=== PATIENT | female | born 1970 | race Caucasian/White ===

== ENCOUNTER 2016-12-31 19:28 | Emergency (ER) | payer OTHER ==
--- NOTE | 2016-12-31 20:48 | DIAGNOSTIC IMAGING REPORT ---
PROCEDURE: XR WRIST MIN 3 VIEWS - LEFT INDICATION: TRAUMA/INJURY TECHNIQUE: Four views. COMPARISON: None. FINDINGS: Bones, joint spaces and soft tissues are normal. IMPRESSION: 1. Negative left wrist.
--- NOTE | 2016-12-31 20:53 | ED CLINICAL REPORT ---
Clinical Report - Physicians/Mid Levels [facility] [address] [place] [address] 12/31/2016 19:32 Patient: BRADLEY RICKS Time Seen: 19:57; initial patient contact. Arrived- By private vehicle. Historian- patient. HISTORY OF PRESENT ILLNESS Chief Complaint: Injury to the left wrist. The injury happened just prior to arrival. Occurred at home. (Lifting heavy object). Patient is experiencing moderate pain. Patient denies injury to the head or neck. REVIEW OF SYSTEMS No swelling, tingling, numbness or weakness. All systems otherwise negative, except as recorded above. PAST HISTORY Vasovagal Syncope. Pneumonia. Dysmenorrhea. Dysfunctional Uterine Bleeding. Dizziness. Abscess. Anemia. Pharyngitis. Abdominal Pain. SURGERIES: . Dental Surgery. Tubal Ligation. SOCIAL HISTORY Current every day smoker. No alcohol use or drug use. ADDITIONAL NOTES The nursing notes have been reviewed with agreement regarding the chief complaint, PMH and patient medications and allergies. PHYSICAL EXAM Vital Signs: 12/31/2016 19:44 BP: 142/87. HR: 97. RR: 16. O2 saturation: 100%. Temp: 98.3 F. Denny-Carmona pain scale: 4/10. Have been reviewed. Hypertensive. Heart rate normal. Respiratory rate normal. Temperature normal. Oxygen saturation normal. Appearance: Alert. Oriented X3. No acute distress. Head: Head atraumatic. Skin: Skin warm and dry. Skin intact. Extremities: Left wrist: moderate tenderness. Neurovascular intact distally. No erythema, swelling, ecchymosis or deformity. No limitation in ROM. Soft tissue tenderness present. No bony tenderness. Extremities otherwise negative. Neuro, Vascular and Tendons: Vascular status intact. Sensation intact. Motor intact. Tendon function intact. Neuro: Oriented X 3. No motor deficit. No sensory deficit. LABS, X-RAYS, AND EKG Lt Wrist X-ray: No fracture. Normal alignment. No bony lesion. Soft tissues normal. Joint spaces normal. Views: AP, lateral and oblique. Technique: good. The X-rays were independently viewed by me and interpreted contemporaneously by me. Prior films were not available for comparison. Interpretation time: 20:53. PROGRESS AND PROCEDURES Disposition: Discharged home in good and improved condition. Condition: good. CLINICAL IMPRESSION Sprain of the left radiocarpal joint. INSTRUCTIONS Apply ice for 20 minutes four times a day. Don't apply ice directly to skin. Wear cock-up splint until released. Do not work with left hand until released. Do not work until released. Prescription Medications: Diclofenac 50 mg tablets: take 1 tablet orally every 8 hours as needed for pain or stiffness. Dispense thirty (30). No refill. Follow-up: Follow up with your doctor in about four days. Call for an appointment. Screening today revealed the patient's blood pressure to be in the hypertensive range. The patient should follow up with a primary care provider for blood pressure management. (Electronically signed by Curt Max Dr. 12/31/2016 21:01)
--- NOTE | 2016-12-31 20:53 | ED ORDER SUMMARY ---
..... Patient: BRADLEY RICKS OrderSheet [facility] VisitID: [id number] [address] [place] [address] 46y, F Registration Date/Time: 12/31/2016 ORDER SHEET Weight: 77.5 kg (stated) Allergies: Codeine, Sulfa Antibiotics GENERAL ORDERS: Wrist 3 or 4V Left Urgent (19:50 12/31/2016 Vadim R.NAbe per protocol) (Ack 19:53 Renetta ER Retail And Promotions Coordinator) ([facility] Splint (UE) (Left) (Cock-up) (20:38 12/31/2016 Jj Ivory) (21:05 Vadim R.N.) MEDICATION ORDERS: Toradol IM 60 mg (NOW) (20:01 12/31/2016 Jj Ivory) (Ack 20:09 Vadim R.N.) (20:17 Vadim R.N.) IV FLUIDS: ORDER SHEET NOTES: [Electronically signed by Curt Max Dr. (21:12/31/2016)] [Electronically signed by Yris Zelaya R.N. (21:12/31/2016)] [Electronically locked/signed by Yris Zelaya R.N. (21:12/31/2016)]
--- NOTE | 2016-12-31 20:53 | ED ORDER SUMMARY ---
..... Patient: BRADLEY RICKS OrderSheet [facility] VisitID: [id number] [address] [place] [address] 46y, F Registration Date/Time: 12/31/2016 ORDER SHEET Weight: 77.5 kg (stated) Allergies: Codeine, Sulfa Antibiotics GENERAL ORDERS: Wrist 3 or 4V Left Urgent (19:50 12/31/2016 Vadim R.NAbe per protocol) (Ack 19:53 Renetta ER Data Solutions Architect) (20:09 [facility] Splint (UE) (Left) (Cock-up) (20:38 12/31/2016 Jj Ivory) (21:05 Vadim R.N.) MEDICATION ORDERS: Toradol IM 60 mg (NOW) (20:01 12/31/2016 Jj Ivory) (Ack 20:09 Vadim R.N.) (20:17 Vadim R.N.) IV FLUIDS: ORDER SHEET NOTES: [Electronically signed by Curt Max Dr. (21:12/31/2016)] [Electronically signed by Yris Zelaya R.N. (21:12/31/2016)] [Electronically locked/signed by Yris Zelaya R.N. (21:12/31/2016)]
--- NOTE | 2016-12-31 20:53 | ED CLINICAL REPORT ---
Clinical Report - Physicians/Mid Levels [facility] [address] [place] [address] 12/31/2016 19:32 Patient: BRADLEY RICKS Time Seen: 19:57; initial patient contact. Arrived- By private vehicle. Historian- patient. HISTORY OF PRESENT ILLNESS Chief Complaint: Injury to the left wrist. The injury happened just prior to arrival. Occurred at home. (Lifting heavy object). Patient is experiencing moderate pain. Patient denies injury to the head or neck. REVIEW OF SYSTEMS No swelling, tingling, numbness or weakness. All systems otherwise negative, except as recorded above. PAST HISTORY Vasovagal Syncope. Pneumonia. Dysmenorrhea. Dysfunctional Uterine Bleeding. Dizziness. Abscess. Anemia. Pharyngitis. Abdominal Pain. SURGERIES: . Dental Surgery. Tubal Ligation. SOCIAL HISTORY Current every day smoker. No alcohol use or drug use. ADDITIONAL NOTES The nursing notes have been reviewed with agreement regarding the chief complaint, PMH and patient medications and allergies. PHYSICAL EXAM Vital Signs: 12/31/2016 19:44 BP: 142/87. HR: 97. RR: 16. O2 saturation: 100%. Temp: 98.3 F. Denny-Carmona pain scale: 4/10. Have been reviewed. Hypertensive. Heart rate normal. Respiratory rate normal. Temperature normal. Oxygen saturation normal. Appearance: Alert. Oriented X3. No acute distress. Head: Head atraumatic. Skin: Skin warm and dry. Skin intact. Extremities: Left wrist: moderate tenderness. Neurovascular intact distally. No erythema, swelling, ecchymosis or deformity. No limitation in ROM. Soft tissue tenderness present. No bony tenderness. Extremities otherwise negative. Neuro, Vascular and Tendons: Vascular status intact. Sensation intact. Motor intact. Tendon function intact. Neuro: Oriented X 3. No motor deficit. No sensory deficit. LABS, X-RAYS, AND EKG Lt Wrist X-ray: No fracture. Normal alignment. No bony lesion. Soft tissues normal. Joint spaces normal. Views: AP, lateral and oblique. Technique: good. The X-rays were independently viewed by me and interpreted contemporaneously by me. Prior films were not available for comparison. Interpretation time: 20:53. PROGRESS AND PROCEDURES Disposition: Discharged home in good and improved condition. Condition: good. CLINICAL IMPRESSION Sprain of the left radiocarpal joint. INSTRUCTIONS Apply ice for 20 minutes four times a day. Don't apply ice directly to skin. Wear cock-up splint until released. Do not work with left hand until released. Do not work until released. Prescription Medications: Diclofenac 50 mg tablets: take 1 tablet orally every 8 hours as needed for pain or stiffness. Dispense thirty (30). No refill. Follow-up: Follow up with your doctor in about four days. Call for an appointment. Screening today revealed the patient's blood pressure to be in the hypertensive range. The patient should follow up with a primary care provider for blood pressure management. (Electronically signed by Curt Max Dr. 12/31/2016 21:01)
--- NOTE | 2016-12-31 20:53 | ED NURSING NOTES ---
Clinical Report - Nurses [facility] [place] [address] [address] 12/31/2016 19:32 Patient: BRADLEY RICKS TRIAGE Triage time 19:44. Acuity: LEVEL 4. Chief Complaint: INJURY TO LEFT WRIST. --19:49 Yris Zelaya R.N. 19:44 12/31/16. BP: 142/87. HR: 97. RR: 16. O2 saturation: 100% on room air. Temp: 98.3 F (oral). Denny-Carmona pain scale: 4/10. --19:49 Yris Zelaya R.N. Weight: 77.5 kg stated. Height/Length: 64 inches Per Patient. BMI: 29.3. --19:47 Yris Zelaya R.N. Medications None. --19:47 Yris Zelaya R.N. Allergies Codeine.(Anaphylaxis) --19:47 Yris Zelaya R.N. Sulfa Antibiotics.(Anaphylaxis) --19:47 Yris Zelaya R.N. History Arrived by private vehicle. Historian: patient. Primary physician (Manjeet). This occurred today (about 10 minutes NIGHTMAN). Mechanism of injury: (pt was lifting aprox 30lb plastic tote and felt a pop with sudden pain). Treatment NIGHTMAN: Took Tylenol. (last dose 4hrs NIGHTMAN due to cold symptoms). PAST MEDICAL HX: Tetanus status: up-to-date. Immunizations: up-to-date. Last normal menstrual period now. SOCIAL HX: Heavy tobacco smoker (cigarette)- less than 1 pack per day. Occasional alcohol use. No drug use. NUTRITIONAL RISK ASSESSMENT: The nutritional risk assessment revealed no deficiencies. FUNCTIONAL ASSESSMENT: Functional assessment: no impairments noted. --19:49 Yris Zelaya R.N. PROBLEMS: Vasovagal Syncope. Pneumonia. Dysmenorrhea. Dysfunctional Uterine Bleeding. Dizziness. Abscess. Anemia. Pharyngitis. Abdominal Pain. LNMP - Last Normal Menstrual Period. --19:48 Yris Zelaya R.N. ADDITIONAL SURGERIES: . Dental Surgery. Tubal Ligation. --19:48 Yris Zelaya R.N. Interventions ID band on patient. To treatment room. --19:49 Yris Zelaya R.N. PHYSICAL ASSESSMENT Ambulatory to room. GENERAL / NEURO / PSYCH: Oriented X 4. Alert. Appears in no acute distress. EXTREMITIES: Capillary refill is less than 2 seconds in the extremities. Neuro-vascular status intact to the extremity. Left forearm: tenderness. Left wrist: tenderness. SKIN: Skin intact. Skin is warm and dry. --19:50 Yris Zelaya R.N. NURSING PROGRESS NOTES Two patient identifiers checked. Call light placed in reach. Side rails up x 1. Bed placed in lowest position. Brakes of bed on. --19:50 Yris Zelaya R.N. Patient ready for evaluation- chart flagged. --19:50 Yris Zelaya R.N. 20:15 12/31/2016 Toradol (Ketorolac Tromethamine) IM 60 mg given. Given in the right ventral gluteus. Allergies verified and confirmed 5 rights. --20:17 Yris Zelaya R.N. 20:56 12/31/16. Velcro upper extremity splint applied to left wrist. Distal pulses intact, sensation intact and motor within normal limits. --20:56 Harmony Carrillo. DISPOSITION / DISCHARGE Condition at departure: stable. No learning barriers present. Discharge instructions provided and reviewed with the patient. Reviewed medication(s) side effects, precautions, dosing and course information. Prescription(s) given to the patient (Diclofenac). The patient was discharged home and accompanied by family. She left the Emergency Department ambulatory and via private vehicle. Patient driving. --21:06 Yris Zelaya R.N. 21:05 12/31/16. BP: 124/77. HR: 93. RR: 15. O2 saturation: 99% on room air. Temp: deferred. Denny-Carmona pain scale: 4/10. --21:06 Yris Zelaya R.N. Locked/Released at 12/31/2016 21:06 by Yris Zelaya R.N.
--- NOTE | 2016-12-31 20:53 | ED NURSING NOTES ---
Clinical Report - Nurses [facility] [place] [address] [address] [place] [address] 12/31/2016 19:32 Patient: BRADLEY RICKS TRIAGE Triage time 19:44. Acuity: LEVEL 4. Chief Complaint: INJURY TO LEFT WRIST. --19:49 Yris Zelaya R.N. 19:44 12/31/16. BP: 142/87. HR: 97. RR: 16. O2 saturation: 100% on room air. Temp: 98.3 F (oral). Denny-Carmona pain scale: 4/10. --19:49 Yris Zelaya R.N. Weight: 77.5 kg stated. Height/Length: 64 inches Per Patient. BMI: 29.3. --19:47 Yris Zelaya R.N. Medications None. --19:47 Yris Zelaya R.N. Allergies Codeine.(Anaphylaxis) --19:47 Yris Zelaya R.N. Sulfa Antibiotics.(Anaphylaxis) --19:47 Yris Zelaya R.N. History Arrived by private vehicle. Historian: patient. Primary physician (Manjeet). 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 Mechanism of injury: (pt was lifting aprox 30lb plastic tote and felt a pop with sudden pain). Treatment SCIENTIFIC TECHNICAL WRITER: Took Tylenol. (last dose 4hrs SCIENTIFIC TECHNICAL WRITER due to cold symptoms). PAST MEDICAL HX: Tetanus status: up-to-date. Immunizations: up-to-date. Last normal menstrual period now. SOCIAL HX: Heavy tobacco smoker (cigarette)- less than 1 pack per day. Occasional alcohol use. No drug use. NUTRITIONAL RISK ASSESSMENT: The nutritional risk assessment revealed no deficiencies. FUNCTIONAL ASSESSMENT: Functional assessment: no impairments noted. --19:49 Yris Zelaya R.N. PROBLEMS: Vasovagal Syncope. Pneumonia. Dysmenorrhea. Dysfunctional Uterine Bleeding. Dizziness. Abscess. Anemia. Pharyngitis. Abdominal Pain. LNMP - Last Normal Menstrual Period. --19:48 Yris Zelaya R.N. ADDITIONAL SURGERIES: . Dental Surgery. Tubal Ligation. --19:48 Yris Zelaya R.N. Interventions ID band on patient. To treatment room. --19:49 Yris Zelaya R.N. PHYSICAL ASSESSMENT Ambulatory to room. GENERAL / NEURO / PSYCH: Oriented X 4. Alert. Appears in no acute distress. EXTREMITIES: Capillary refill is less than 2 seconds in the extremities. Neuro-vascular status intact to the extremity. Left forearm: tenderness. Left wrist: tenderness. SKIN: Skin intact. Skin is warm and dry. --19:50 Yris Zelaya R.N. NURSING PROGRESS NOTES Two patient identifiers checked. Call light placed in reach. Side rails up x 1. Bed placed in lowest position. Brakes of bed on. --19:50 Yris Zelaya R.N. Patient ready for evaluation- chart flagged. --19:50 Yris Zelaya R.N. 20:15 12/31/2016 Toradol (Ketorolac Tromethamine) IM 60 mg given. Given in the right ventral gluteus. Allergies verified and confirmed 5 rights. --20:17 Yris Zelaya R.N. 20:56 12/31/16. Velcro upper extremity splint applied to left wrist. Distal pulses intact, sensation intact and motor within normal limits. --20:56 Harmony Carrillo. DISPOSITION / DISCHARGE Condition at departure: stable. No learning barriers present. Discharge instructions provided and reviewed with the patient. Reviewed medication(s) side effects, precautions, dosing and course information. Prescription(s) given to the patient (Diclofenac). The patient was discharged home and accompanied by family. She left the Emergency Department ambulatory and via private vehicle. Patient driving. --21:06 Yris Zelaya R.N. 21:05 12/31/16. BP: 124/77. HR: 93. RR: 15. O2 saturation: 99% on room air. Temp: deferred. Denny-Carmona pain scale: 4/10. --21:06 Yris Zelaya R.N. Locked/Released at 12/31/2016 21:06 by Yris Zelaya R.N.
--- NOTE | 2016-12-31 21:07 | ED MED RECONCILIATION SUMMARY ---
Patient: BRADLEY RICKS Medication Reconciliation Report [facility] VisitID: [id number] [address] [place] [address] 46y, F Registration Date/Time: 12/31/2016 Weight: 77.5 kg Height/Length: 64 in. BMI: 29.3 ALLERGIES: Codeine, Sulfa Antibiotics The patient's Home Medications are listed below: NONE. The source(s) of the original Home Medication information: Not obtained. The following Medications were given to the patient in the Emergency Department: Toradol [IM] IM 60 mg, administered: 12/31/2016 8:15:00 PM The following Medications were prescribed to the patient: Diclofenac 50 mg tablets: take 1 tablet orally every 8 hours as needed for pain or stiffness. Dispense thirty (30). No refill. -- Curt Max Dr.
--- NOTE | 2016-12-31 21:07 | ED MAR SUMMARY ---
..... Medication Administration Record [facility] [address] [place] [address] Patient: BRADLEY RICKS Visit ID: [id number] 46y, F Weight: 77.5 kg Height/Length: 64 in BMI: 29.3 ALLERGIES: Sulfa Antibiotics, Codeine Given 20:15 12/31/2016 Yris Zelaya R.N. Medication Administered: TORADOL [IM] (KETOROLAC TROMETHAMINE), Dose: 60 mg IM. Medication Ordered: Toradol IM 60 mg (NOW).
--- NOTE | 2016-12-31 21:07 | ED MAR SUMMARY ---
..... Medication Administration Record [facility] [address] [place] [address] Patient: BRADLEY RICKS Visit ID: [id number] 46y, F Weight: 77.5 kg Height/Length: 64 in BMI: 29.3 ALLERGIES: Sulfa Antibiotics, Codeine Given 20:15 12/31/2016 Yris Zelaya R.N. Medication Administered: TORADOL [IM] (KETOROLAC TROMETHAMINE), Dose: 60 mg IM. Medication Ordered: Toradol IM 60 mg (NOW).
--- NOTE | 2016-12-31 21:07 | ED MED RECONCILIATION SUMMARY ---
Patient: BRADLEY RICKS Medication Reconciliation Report [facility] VisitID: [id number] [address] [place] [address] 46y, F Registration Date/Time: 12/31/2016 Weight: 77.5 kg Height/Length: 64 in. BMI: 29.3 ALLERGIES: Codeine, Sulfa Antibiotics The patient's Home Medications are listed below: NONE. The source(s) of the original Home Medication information: Not obtained. The following Medications were given to the patient in the Emergency Department: Toradol [IM] IM 60 mg, administered: 12/31/2016 8:15:00 PM The following Medications were prescribed to the patient: Diclofenac 50 mg tablets: take 1 tablet orally every 8 hours as needed for pain or stiffness. Dispense thirty (30). No refill. -- Curt Max Dr.
--- NOTE | 2016-12-31 21:07 | ED DISCHARGE INSTRUCTIONS ---
Patient: BRADLEY RICKS General Instructions [facility] VisitID: [id number] [place] [address] 46y, F Registration Date/Time: 12/31/2016 Sprain of the left radiocarpal joint. INSTRUCTIONS Apply ice for 20 minutes four times a day. Don't apply ice directly to skin. Wear cock-up splint until released. Do not work with left hand until released. Do not work until released. Prescription Medications: Diclofenac 50 mg tablets: take 1 tablet orally every 8 hours as needed for pain or stiffness. Dispense thirty (30). No refill. Follow-up: Follow up with your doctor in about four days. Call for an appointment. Screening today revealed the patient's blood pressure to be in the hypertensive range. The patient should follow up with a primary care provider for blood pressure management. ADDITIONAL INFORMATION Sprain, Wrist A sprain is an injury to the ligaments or capsule that holds a joint together. There are no broken bones. Most sprains take about three to six weeks to heal. If the ligament is completely torn (severe sprain), it can take months to recover. Most wrist sprains are treated with a splint, wrist brace or elastic wrap for support. Severe sprains may require surgery. Home care The following guidelines will help you care for your injury at home: 1) Keep your arm elevated to reduce pain and swelling. This is very important during the first 48 hours. 2) Apply an ice pack (ice cubes in a plastic bag, wrapped in a towel) over the injured area for 20 minutes every 12 hours the first day. Continue with ice packs 34 times a day for the next two days, then as needed for the relief of pain and swelling. 3) You may use acetaminophen or ibuprofen to control pain, unless another pain medicine was prescribed.If you have chronic liver or kidney disease or ever had a stomach ulcer or GI bleeding, talk with your doctor before using these medicines. 4) If you were given a splint or brace, wear it for the time advised by your doctor. Follow-up care Follow up with your doctor as advised. Any X-rays you had today dont show any broken bones, breaks, or fractures. Sometimes fractures dont show up on the first X-ray. Bruises and sprains can sometimes hurt as much as a fracture. These injuries can take time to heal completely. If your symptoms dont improve or they get worse, talk with your doctor. You may need a repeat X-ray. When to seek medical care Get prompt medical attention if any of the following occur: Pain or swelling increases Fingers or hand becomes cold, blue, numb, or tingly Aircast Traditional splints and casts for the foot and ankle protect the injury by preventing movement at the joints. However, many injuries heal better and faster if the injured joint can be moved, while protected at the same time. This is the reason for using an Aircast. There are two common type of AirCasts: 1) Air-Stirrup ankle splint This is often used to treat ankle sprains. It contains padded air cells in a plastic frame that fits into your shoe. This allows you to walk while preventing the ankle joint from rolling in or out causing re-injury. Ankle sprains can take 4-6 weeks to heal. Persons with severe injuries or over age 60 may require more time to heal. During that time, you are prone to re-injury by suddenly twisting your ankle again while the ligaments are still weak. When treating a sprain, the Air-Stirrup splint should be worn whenever walking for at least four weeks, or as long as you continue to have ankle pain. You should continue to wear it at least 6 weeks whenever running, playing sports or any activity where there is increased risk of re-injury. Talk to your doctor for specific advice about the treatment of your condition. 2) SP-Walker boot This is a short boot that provides support and protection to the foot and ankle while allowing you to walk. It contains padded air cells that provide compression and help circulation. It is used for both foot and ankle injuries - both sprains and minor fractures. Talk to your doctor for specific advice about the treatment of your condition. Air-Stirrup and SP-Walker are trademarks of [employer]. For more information about their products, see www.[employer]. You have been given the following additional information: Wrist Sprain Aircast Splint And Boot Do not work with left hand until released. Do not work until released. (Electronically signed by Curt Max Dr. 12/31/2016 21:01)
== END 2016-12-31 21:05 | disposition home or self-care (01) ==
LOC: ED SRH 19:28
DX: S63.522A Sprain of radiocarpal joint of left wrist, initial encounter (principal); X50.0XXA Overexertion from strenuous movement or load, initial encounter; Y93.89 Activity, other specified; Y92.009 Unspecified place in unspecified non-institutional (private) residence as the place of occurrence of the external cause; F17.210 Nicotine dependence, cigarettes, uncomplicated; Z88.5 Allergy status to narcotic agent; Z88.2 Allergy status to sulfonamides

== ENCOUNTER 2017-05-06 14:50 | Emergency (ER) | payer OTHER ==
--- NOTE | 2017-05-06 16:41 | DIAGNOSTIC IMAGING REPORT ---
PROCEDURE: XR RIBS UNILAT W/PA CHEST-LT INDICATION: TRAUMA/INJURY TECHNIQUE: Three views of the left ribs with single PA view chest. COMPARISON: None. FINDINGS: LEFT RIBS: No displaced rib fractures. No suspicious rib lesions. CHEST: Normal cardiomediastinal contour. Clear lungs without pleural effusion, pneumothorax, or contusion. The other visible osseous structures are intact. IMPRESSION: 1. Intact left ribs. 2. Normal chest without radiographic evidence of trauma.
--- NOTE | 2017-05-06 16:59 | DIAGNOSTIC IMAGING REPORT ---
PROCEDURE: XR ORBITS INDICATION: TRAUMA/INJURY TECHNIQUE: Four views of the orbits COMPARISON: None. FINDINGS: No fracture or dislocation. The sinuses are clear. IMPRESSION: 1. No fractures
--- NOTE | 2017-05-06 16:59 | DIAGNOSTIC IMAGING REPORT ---
PROCEDURE: XR ORBITS INDICATION: TRAUMA/INJURY TECHNIQUE: Four views of the orbits COMPARISON: None. FINDINGS: No fracture or dislocation. The sinuses are clear. IMPRESSION: 1. No fractures
--- NOTE | 2017-05-06 17:49 | ED ORDER SUMMARY ---
..... Patient: BRADLEY RICKS OrderSheet [facility] VisitID: [id number] [address] [place] [address] 46y, F Registration Date/Time: 05/06/2017 ORDER SHEET Weight: 79.3 kg (stated) Allergies: Codeine, Sulfa Antibiotics GENERAL ORDERS: Ribs Unilat w PA Chest Left Urgent (15:42 05/06/2017 HBivens A.R.N.P.) (Ack 15:46 LNations ER Tech1) (17:53 MCampbell) Orbits Urgent (15:42 05/06/2017 HBivens A.R.N.P.) (Ack 15:45 LNations ER Tech1) (17:53 MCampbell) MEDICATION ORDERS: IV FLUIDS: ORDER SHEET NOTES: [Electronically signed by Riki Steward (18:13 05/06/2017)] [Electronically signed by Mariajose Mckenna A.R.N.P. (19:54 05/06/2017)] [Electronically locked/signed by Riki Steward (18:13 05/06/2017)]
--- NOTE | 2017-05-06 17:49 | ED ORDER SUMMARY ---
..... Patient: BRADLEY RICKS OrderSheet [facility] VisitID: [id number] [address] [place] [address] 46y, F Registration Date/Time: 05/06/2017 ORDER SHEET Weight: 79.3 kg (stated) Allergies: Codeine, Sulfa Antibiotics GENERAL ORDERS: Ribs Unilat w PA Chest Left Urgent (15:42 05/06/2017 HBivens A.R.N.P.) (Ack 15:46 LNations ER Tech1) (17:53 MCampbell) Orbits Urgent (15:42 05/06/2017 HBivens A.R.N.P.) (Ack 15:45 LNations ER Tech1) (17:53 MCampbell) MEDICATION ORDERS: IV FLUIDS: ORDER SHEET NOTES: [Electronically signed by Riki Steward (18:13 05/06/2017)] [Electronically signed by Mariajose Mckenna A.R.N.P. (19:54 05/06/2017)] [Electronically locked/signed by Riki Steward (18:13 05/06/2017)]
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
--- NOTE | 2017-05-06 19:54 | ED MED RECONCILIATION SUMMARY ---
Patient: BRADLEY RICKS Medication Reconciliation Report [facility] VisitID: [id number] [place] [address] 46y, F Registration Date/Time: 05/06/2017 Weight: 79.3 kg Height/Length: 64 in. BMI: 30.0 ALLERGIES: Codeine, Sulfa Antibiotics The patient's Home Medications are listed below: NONE. The source(s) of the original Home Medication information: Not obtained. The following Medications were given to the patient in the Emergency Department: None. The following Medications were prescribed to the patient: Naproxen 500 mg tablets: take 1 orally every 12 hours as needed for pain. Dispense twenty (20). No refills. -- Mariajose Mckenna A.R.N.P.
--- NOTE | 2017-05-06 19:54 | ED MED RECONCILIATION SUMMARY ---
Patient: BRADLEY RICKS Medication Reconciliation Report [facility] VisitID: [id number] [place] [address] 46y, F Registration Date/Time: 05/06/2017 Weight: 79.3 kg Height/Length: 64 in. BMI: 30.0 ALLERGIES: Codeine, Sulfa Antibiotics The patient's Home Medications are listed below: NONE. The source(s) of the original Home Medication information: Not obtained. The following Medications were given to the patient in the Emergency Department: None. The following Medications were prescribed to the patient: Naproxen 500 mg tablets: take 1 orally every 12 hours as needed for pain. Dispense twenty (20). No refills. -- Mariajose Mckenna A.R.N.P.
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
--- NOTE | 2017-05-06 19:54 | ED MAR SUMMARY ---
..... Medication Administration Record [facility] [address] [place], [place] [id number] Patient: BRADLEY RICKS Visit ID: [id number] 46y, F Weight: 79.3 kg Height/Length: 64 in BMI: 30 ALLERGIES: Codeine, Sulfa Antibiotics
--- NOTE | 2017-05-06 19:54 | ED MAR SUMMARY ---
..... Medication Administration Record [facility] [address] [place], [place] [id number] Patient: BRADLEY RICKS Visit ID: [id number] 46y, F Weight: 79.3 kg Height/Length: 64 in BMI: 30 ALLERGIES: Codeine, Sulfa Antibiotics
== END 2017-05-06 18:03 | disposition home or self-care (01) ==
LOC: ED SRH 14:50
DX: S00.83XA Contusion of other part of head, initial encounter (principal); T14.8 Other injury of unspecified body region; Y04.0XXA Assault by unarmed brawl or fight, initial encounter; Y93.9 Activity, unspecified; Y92.009 Unspecified place in unspecified non-institutional (private) residence as the place of occurrence of the external cause; Y99.9 Unspecified external cause status; F17.210 Nicotine dependence, cigarettes, uncomplicated